=== PATIENT | male | born 2000 | race African-American/Black ===

== ENCOUNTER 2018-04-29 20:47 | Inpatient (IN) | payer OTHER ==
[~2018-04-29] VITALS: Ht 188 cm; Wt 72.6 kg
[2018-04-29 20:58] VITALS: BP 99/72
[2018-04-29] MEDS ORDERED: RISPERDAL2 MG PO (21:05)
[2018-04-29 21:06] LABS: URINE BLOOD TRACE (Negative); URINE CLARITY CLEAR; URINE COLOR YELLOW; URINE GLUCOSE-RANDOM* NEGATIVE (Negative); URINE LEUKOCYTES TRACE (Negative); URINE NITRITE NEGATIVE (Negative); URINE PROTEIN (DIPSTICK) NEGATIVE (Negative); URINE SPECIFIC GRAVITY >= 1.030 (1.005-1.035); URINE UROBILINOGEN 0.2 E.U./dl (0.2-1.0)
[2018-04-29 21:12] LABS: ICTOTEST (BILI CONFIRMATORY) Negative (Negative); URINE BILIRUBIN NEGATIVE (Negative); URINE KETONES 1+ (Negative)
[2018-04-29 21:15] LABS: BACTERIA 1-9 Few /HPF (None Seen); CASTS None Seen /LPF (None Seen); CRYSTALS None Seen /LPF (None Seen); MUCUS 0-3 Light strn/LPF (None Seen); SQUAMOUS None Seen /LPF (0-3); URINE RBC 0-2 Rare /HPF (0-2); URINE WBC 6-15 Few /HPF (0-5)
[2018-04-29 21:23] LABS: EOSINOPHILS 1.2 % (0.0-3.0); HEMATOCRIT 46.2 % (42.0-52.0); HEMOGLOBIN 14.9 gm/dL (14.0-18.0); MCH 23.6 pg (26.0-34.0); MCHC 32.1 g/dL (28.0-37.0); MCV 73.6 fL (80.0-100.0); MONOCYTES 6.5 % (1.0-8.0); PLATELET COUNT 129 thou/uL (150-400); POLYS 89.3 % (36.0-66.0); RBC 6.29 mil/uL (4.50-6.00); WBC 11.2 thou/uL (4.0-11.0)
[2018-04-29 21:30] LABS: CALCIUM 9.2 mg/dL (8.5-10.1); CREATININE 1.1 mg/dL (0.7-1.3); POTASSIUM 4.2 mmol/L (3.5-5.1)
[2018-04-29 21:36] LABS: ALBUMIN 4.5 g/dL (3.4-5.0); TOTAL BILIRUBIN 2.3 mg/dL (<0.1-1.0); TOTAL PROTEIN 8.4 g/dL (6.4-8.2)
[2018-04-30 01:19] VITALS: BP 106/51
[2018-04-30 01:42] VITALS: BP 114/52
[2018-04-30 04:20] VITALS: BP 101/51
[2018-04-30 04:51] LABS: HEMATOCRIT 41.5 % (42.0-52.0); MCH 22.9 pg (26.0-34.0); MCHC 30.7 g/dL (28.0-37.0); MCV 74.5 fL (80.0-100.0); RBC 5.57 mil/uL (4.50-6.00); RDW 14.1 % (10.5-14.5); WBC 7.7 thou/uL (4.0-11.0)
[2018-04-30 04:52] LABS: CALCIUM 8.1 mg/dL (8.5-10.1); POTASSIUM 3.7 mmol/L (3.5-5.1)
[2018-04-30 05:09] LABS: HEMOGLOBIN 12.7 gm/dL (14.0-18.0)
[2018-04-30 08:04] VITALS: BP 100/54
[2018-04-30 15:31] VITALS: BP 98/47
[2018-04-30 19:31] VITALS: BP 95/50
[2018-05-01 04:00] VITALS: BP 134/97
[2018-05-01 06:14] LABS: ALBUMIN 3.2 g/dL (3.4-5.0); CALCIUM 8.3 mg/dL (8.5-10.1); POTASSIUM 4.4 mmol/L (3.5-5.1); TOTAL BILIRUBIN 1.2 mg/dL (<0.1-1.0); TOTAL PROTEIN 6.3 g/dL (6.4-8.2)
[2018-05-01 07:45] VITALS: BP 95/46
[2018-05-01] MEDS ORDERED: BENTYL 10 MG CA10 M1 PO (10:19)
[2018-05-01 11:03] VITALS: BP 95/46
== END 2018-05-01 12:45 | disposition home or self-care (01) | DRG 392 ==
LOC: ER 20:47 → EROBS 04-30 00:33 → 4W 04-30 01:21
PROVIDERS: Hospitalist; Nurse Practitioner Family; Student in an Organized Health Care Education/Training Program
DX: K52.9 Noninfective gastroenteritis and colitis, unspecified (principal); F31.9 Bipolar disorder, unspecified; Z88.8 Allergy status to other drugs, medicaments and biological substances; Z79.899 Other long term (current) drug therapy
CPT/HCPCS: 10040